=== PATIENT | male | born 1980 | race Caucasian/White ===

== ENCOUNTER 2017-12-21 07:22 | Emergency (ER) | payer OTHER ==
[2017-12-21 07:44] VITALS: BP 107/67; PULSE 59; TEMP 97.8; BMI 27.4
--- NOTE | 2017-12-21 07:51 | PDOC ---
History of Present Illness - General Chief Complaint: Injury Stated Complaint: FALL Time Seen by Provider: 12/21/17 07:50 - History of Present Illness Initial Comments: Patient is a 37 year old female, with no significant past medical history, who presents to the emergency department from home this AM after mechanical fall while exiting the shower. 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 He denies any head trauma, gross deformities, crepitus at the site, or LOC/seizure symptoms during the fall. Pt with no prior fractures. Pt denies f/c/n/v/d, HALE, vision changes, LOC, SOB, ab pain, back pain, pain in any other extremities, peripheral numbness/weakness in any extremities, cold extremities or swelling. Denies dysuria, frequency, urgency and hematuria. Allergies: none Past surgical history: none Social History: Denies alcohol, smoking, drug use PMD: Dr. Armstrong 12/21/17 07:52 Past History - Past Medical History Allergies/Adverse Reactions: Allergies Allergy/AdvReac Type Severity Reaction Status Date / Time No Known Allergies Allergy Verified 12/21/17 07:40 Home Medications: Ambulatory Orders Miscellaneous Drug Not in Syst 0 each .ROUTE ASDIR #1 each 12/21/17 Oxycodone HCl/Acetaminophen [Percocet 5-325 mg Tablet] 1 - 2 tab PO TID PRN #20 tab MDD 6 tabs 12/21/17 Oxycodone HCl/Acetaminophen [Percocet 5-325 mg Tablet] 1 tab PO Q4H #20 tablet MDD 5 12/21/17 COPD: No Other medical history: DENIES. - Suicide/Smoking/Psychosocial Hx Smoking History: Never smoked Review of Systems - Review of Systems Able to Perform ROS?: Yes Comments:: GENERAL/CONSTITUTIONAL: No fever or chills. No weakness. HEAD, EYES, EARS, NOSE AND THROAT: No change in vision. No ear pain or discharge. No sore throat. CARDIOVASCULAR: No chest pain or shortness of breath RESPIRATORY: No cough, wheezing, or hemoptysis. GASTROINTESTINAL: No nausea, vomiting, diarrhea or constipation. GENITOURINARY: No dysuria, frequency, or change in urination. MUSCULOSKELETAL: +Pain in L lateral chest and L wrist. No neck, extremity or back pain. SKIN: No rash NEUROLOGIC: No headache, vertigo, loss of consciousness, or change in strength/ sensation. ENDOCRINE: No increased thirst. No abnormal weight change HEMATOLOGIC/LYMPHATIC: No anemia, easy bleeding, or history of blood clots. ALLERGIC/IMMUNOLOGIC: No hives or skin allergy. 12/21/17 07:52 *Physical Exam - Vital Signs Last Vital Signs Temp Pulse Resp BP Pulse Ox 97.8 F 59 L 19 107/67 100 12/21/17 07:40 12/21/17 07:40 12/21/17 07:40 12/21/17 07:40 12/21/17 07:40 - Physical Exam Comments: GENERAL: Young man, Awake, alert, and fully oriented, in mild distress HEAD: No signs of trauma, normocephalic, atraumatic EYES: PERRLA, EOMI, sclera anicteric, conjunctiva clear ENT: Auricles normal inspection, hearing grossly normal, nares patent, oropharynx clear without exudates. Moist mucosa NECK: Normal ROM, supple, no lymphadenopathy, JVD, or masses LUNGS: No distress, speaks full sentences, clear to auscultation bilaterally HEART: Regular rate and rhythm, normal S1 and S2, no murmurs, rubs or gallops, peripheral pulses normal and equal bilaterally. ABDOMEN: Soft, nontender, normoactive bowel sounds. No guarding, no rebound. No masses MSK: Focal edema and TTP in L lateral chest wall in midaxillary line at 4-6 rib space. No bruise, crepitus or gross deformities noted. No other chest wall trauma or deformities noted EXTREMITIES : Focal edema, TTP on proximate lateral wrist joint; no gross deformities, crepitus or neurovascular symptoms. Otherwise, Normal inspection, Normal range of motion, no edema in all other extremities. No clubbing or cyanosis. NEUROLOGICAL: Cranial nerves II through XII grossly intact. Normal speech, normal gait, no focal sensorimotor deficits SKIN: Warm, Dry, normal turgor, no rashes or lesions noted 12/21/17 07:52 Medical Decision Making - Medical Decision Making 37 year old female, with no significant past medical history, who presents to the emergency department from home this AM after mechanical fall while exiting the shower. Physical exam notable for focal edema and tenderness on L lateral chest wall and L lateral wrist with no obvious palpable fractures or bony deformities. Will order for dedicated rib XR, L wrist XR and pain control with PO pain meds. 12/21/17 08:40 *DC/Admit/Observation/Transfer Diagnosis at time of Disposition: Fall - Discharge Dispostion Disposition: HOME Condition at time of disposition: Good Decision to Admit order: No - Prescriptions Prescriptions: Miscellaneous Drug Not in Syst 0 each .ROUTE ASDIR #1 each Oxycodone HCl/Acetaminophen [Percocet 5-325 mg Tablet] 1 - 2 tab PO TID PRN #20 tab MDD 6 tabs PRN Reason: Pain Oxycodone HCl/Acetaminophen [Percocet 5-325 mg Tablet] 1 tab PO Q4H #20 tablet MDD 5 - Referrals - Patient Instructions Printed Discharge Instructions: How to Prevent Falls Additional Instructions: During your visit to the [facility] ED, you were evaluated for a mechanical fall and chest pain at the site of your trauma. You received imaging of your chest and wrist which was normal. You are being discharged home with outpatient follow-up with your primary care provider. Please use your incentive spirometer 10 times an hour, as much as possible while at home. Please take percocet 5/325mg every 6 hours if you experience pain at the site of trauma If you experience any of the following symptoms, please return to the ED: - Persistent shortness or breath, trouble taking breaths - Worsening pain at in your chest at the site of trauma for >2 days - Numbness/weakness in your left hand or if your left hand becomes cold - Any new or concerning symptoms - Post Discharge Activity Forms/Work/School Notes: Back to Work
--- NOTE | 2017-12-21 10:40 | PDOC ---
Attending Attestation - Resident Resident Name: Mason Coffey - ED Attending Attestation I have performed the following: I have examined & evaluated the patient, The case was reviewed & discussed with the resident, I agree w/resident's findings & plan - HPI HPI: 12/21/17 10:34 healthy 37y/o M p/w L rib and wrist pain after slip and fall in shower this morning. no head injury/LOC. - Physicial Exam PE: 12/21/17 10:35 VSS + L mid rib tenderness without step off or crepitus. lungs clear. + L wrist ventral swelling without focal bony ttp or deformity, FROM, nvi - Medical Decision Making 12/21/17 10:40 healthy 37y/o M with L rib and wrist injury after mechanical slip and fall. L rib series wnl, lungs clear no ptx -- pain control, incentive spirometer, return criteria discussed L wrist without fracture -- shameka wrap, RICE, return precautions
== END 2017-12-21 11:25 | disposition home or self-care (01) ==
LOC: JER 07:22
DX: S29.8XXA Other specified injuries of thorax, initial encounter (principal); M25.532 Pain in left wrist; W18.39XA Other fall on same level, initial encounter; Y93.E1 Activity, personal bathing and showering; Y92.031 Bathroom in apartment as the place of occurrence of the external cause; Y99.8 Other external cause status
CPT/HCPCS: 71101-TC-FY; 73110-TC-LR-FY; 73130-TC-LR-FY; 99281-25

== ENCOUNTER 2022-03-06 09:31 | Emergency (ER) | payer OTHER ==
[2022-03-06 09:52] VITALS: BP 125/82; PULSE 78; RESP 17; TEMP 98.2; BMI 27.4
== END 2022-03-06 10:20 | disposition home or self-care (01) ==
LOC: JERFT 09:31
DX: L23.7 Allergic contact dermatitis due to plants, except food (principal)
CPT/HCPCS: 99281-25

== ENCOUNTER 2022-03-09 13:11 | Emergency (ER) | payer OTHER ==
[2022-03-09 13:34] VITALS: BP 106/67; PULSE 83; RESP 18; TEMP 98.2; BMI 24.9
== END 2022-03-09 14:50 | disposition home or self-care (01) ==
LOC: JERFT 13:11 → JER 13:11 → JERFT 14:50
PROC: 3E023GC Introduction of Other Therapeutic Substance into Muscle, Percutaneous Approach (ICD-10-PCS; principal; 2022-03-09)
DX: L23.7 Allergic contact dermatitis due to plants, except food (principal)
CPT/HCPCS: 99284-25

== ENCOUNTER 2023-04-14 14:45 | Emergency (ER) | payer OTHER ==
[2023-04-14 14:50] VITALS: BMI 27.8
[2023-04-14] MEDS ORDERED: KETOROLAC TROMETHAMINE 30 MG/1 ML VIAL IM ONE (15:20)
[2023-04-14] MEDS ORDERED: ACETAMINOPHEN 500 MG TABLET (FP) PO ONE (15:20)
[2023-04-14] MEDS ORDERED: KETOROLAC TROMETHAMINE 30 MG/1 ML VIAL ONE (15:25)
[2023-04-14] MEDS ORDERED: ACETAMINOPHEN 500 MG TABLET (FP) ONE (15:25)
[2023-04-14 16:28] VITALS: BP 113/62; PULSE 81; RESP 16; TEMP 98.9
== END 2023-04-14 16:39 | disposition home or self-care (01) ==
LOC: JERFT 14:45
PROC: 3E0233Z Introduction of Anti-inflammatory into Muscle, Percutaneous Approach (ICD-10-PCS; principal; 2023-04-14)
DX: S80.912A Unspecified superficial injury of left knee, initial encounter (principal); M25.462 Effusion, left knee; X50.0XXA Overexertion from strenuous movement or load, initial encounter; Y99.0 Civilian activity done for income or pay
CPT/HCPCS: 73562-TC-LT-FY; 99284-25